=== PATIENT | male | born 1965 | race Caucasian/White ===

== ENCOUNTER → 2016-11-03 | Outpatient (REF) ==
--- NOTE | 2016-11-03 09:29 | REP ---
RIGHT HIP, AP AND FROGLEG VIEWS: There are no comparison studies. There is a total hip arthroplasty with the components tightly applied and in satisfactory position and alignment in both projections. There is no evidence of prosthesis loosening. There is no fracture or dislocation. Mineralization is normal. There are calcifications along the lateral margin of the acetabular roof. This could be postsurgical change or ligamentous calcifications. Mineralization is normal. Study is otherwise unremarkable. Signed by Evans Zamora MD 11/04/2016 05:19 P
== END ==
LOC: M SMT 08:05
PROVIDERS: ATTEND Internal Medicine
DX: Z02.71 Encounter for disability determination (principal)

== ENCOUNTER 2017-06-14 07:00 | Inpatient (IN) | payer OTHER ==
[~2017-06-14] VITALS: Ht 185.4 cm; Wt 90.7 kg
[~2017-06-14 07:00] MED LIST: BUPIVACAINE LIPOSOME/PF 1.3% 20 ML VIAL (13.3MG/ML)(EXPAREL) As Ordered ONE; CYMB60CA3 PO; FLOM5CAP PO; FLON1SPR; LR 1,000 ML IV ONE; NEXI40CA PO; TRANEXAMIC ACID 100 MG/ML 10ML VIAL As Ordered ONE; TRAZ25TA PO; ZYRT10CA PO; ceFAZolin 1GM INJ (J0690) As Ordered ONE
[2017-06-14] MEDS ORDERED: ceFAZolin 2 GM/D5W 50 ML IV BAG (J0690) As Ordered ONE (07:12)
[2017-06-14] MEDS ORDERED: VIAG100T (07:26)
[2017-06-14] MEDS ORDERED: ADVA230A (07:26)
[2017-06-14] MEDS ORDERED: MONT10TA2 (07:26)
[2017-06-14] MEDS ORDERED: fentaNYL 100 MCG/2 ML INJECTION (J3010) As Ordered ONE ×2 (07:58→08:48)
[2017-06-14] MEDS ORDERED: MIDAZOLAM INJ 2 MG/2 ML VIAL (J2250) As Ordered ONE ×3 (07:58→10:31)
[2017-06-14] MEDS ORDERED: fentaNYL 100 MCG/2 ML INJECTION (J3010) IV ONE (08:45)
[2017-06-14] MEDS ORDERED: MIDAZOLAM INJ 2 MG/2 ML VIAL (J2250) IV ONE (08:45)
[2017-06-14] MEDS ORDERED: dexameTHASONE 4 MG/ML 1ML VIAL (J1100) As Ordered ONE (08:48)
[2017-06-14] MEDS ORDERED: LIDOCAINE 2% INJ 100 MG/5 ML SDV (FOR ANES.) As Ordered ONE (08:48)
[2017-06-14] MEDS ORDERED: ONDANSETRON 4MG/2ML VIAL (J2405) As Ordered ONE (08:48)
[2017-06-14] MEDS ORDERED: PROPOFOL 500 MG/50 ML VIAL As Ordered ONE (08:48)
[2017-06-14] MEDS ORDERED: ePHEDrine SULFATE 25 MG/5 ML(5MG/ML) SYRINGE As Ordered ONE (09:13)
[2017-06-14] MEDS ORDERED: PROPOFOL 200 MG/20 ML VIAL As Ordered ONE ×3 (09:56→11:15)
[2017-06-14] MEDS ORDERED: EPINEPHrine INJ 1 MG/ML 1ML AMP ONE (10:39)
[2017-06-14] MEDS ORDERED: ROPIvacaine 0.5% 30 ML INJECTION (J2795) ONE (10:39)
[2017-06-14] MEDS ORDERED: dexameTHASONE 10 MG/1 ML VIAL PRES.FREE (J1100) ONE (10:39)
[2017-06-14] MEDS ORDERED: LR 1,000 ML IV SCH (12:00)
[2017-06-14] MEDS ORDERED: fentaNYL 100 MCG/2 ML INJECTION (J3010) IV PRN (12:00)
[2017-06-14] MEDS ORDERED: ONDANSETRON 4MG/2ML VIAL (J2405) IV PRN ×2 (12:00→12:45)
[2017-06-14 12:30] VITALS: BP 118/68
--- NOTE | 2017-06-14 12:43 | RO ---
DATE OF PROCEDURE: 06/14/2017 PREPROCEDURE DIAGNOSIS: Left knee osteoarthritis. POSTPROCEDURE DIAGNOSIS: Left knee osteoarthritis. PROCEDURE: Left total knee arthroplasty. SURGEON: Dr. Tj Ch. PSYCHIATRIST: NIGEL Quick ANESTHESIA: Spinal, adductor canal block, local IMPLANTS: DePuy Sigma PFC size 5 cruciate retaining femur, size 5 Fixed-Bearing tibia, 12.5 mm cruciate retaining polyethylene and 38 mm patellar polyethylene. ANTIBIOTICS: 2 grams Ancef given within 1 hour of incision. TOTAL TOURNIQUET TIME: 112 minutes at 250 mmHg, left thigh. PREOP MEDICATIONS: 1 gram tranexamic acid (TXA) given within 1 hour of incision. MATERIALS SENT TO LAB: None. COMPLICATIONS: None. INDICATION FOR PROCEDURE: Dick Carvalho is a 51 y/o male with a long standing history of left knee pain secondary to left knee osteoarthritis. He failed appropriate non surgical therapy to include activity modification, medications, physical therapy, injections, and has maintained a healthy body weight. I discussed with him the risks, benefits, indications, and alternatives of operative versus non operative treatment and he elected to proceed with left total knee arthroplasty. Informed consent was obtained. INTRAOPERATIVE FINDINGS: patient had severe tricompartmental osteoarthritis with mild valgus deformity. Well balanced and full ROM after implants placed. DESCRIPTION OF PROCEDURE: The patient was positively identified in the preop holding area where the surgical site was marked. He was given adductor canal nerve block with the anesthesia service for postop pain control. He was then brought to the operating room where he was given single-shot spinal anesthesia for intraoperative pain control. He was then prepped and draped in the usual sterile fashion. Final time out was performed. I made a 15 cm longitudinal incision centered over the patella extending distally to just medial to the tibial tubercle. I dissected through skin and subcutaneous tissue. I identified the quadriceps tendon, medial retinaculum and vastus medial oblique (VMO). I raised a medial flap to expose the medial retinaculum. I then performed a medial parapatellar arthrotomy in order to access the knee joint. I then performed a medial release off the proximal tibia using Bovie electrocautery and a curved osteotome. I then resected approximately half of the infrapatellar fat pad to aid with visualization laterally. The knee was then flexed and the patella everted to aid with creating the distal femur cut. I then used the rongeur to establish a starting point for the intramedullary femoral drill. The intramedullary femoral drill was placed and the 5 degree valgus, 10 mm cut intramedullary cutting guide was placed and pinned in place. The distal femur cut was made. At this point, the suprapatellar fat pad and synovium were resected in order to adequately size the femur for chamfer cuts. Osteophytes were removed from the femur. The posterior referencing cutting guide was placed on the posterior condyles of the femur were noted to be in line with the epicondylar axis and perpendicular to whitesides line. The femoral component was sized to a size 5. The 4-in-1 cutting block for a size 5 was placed onto the femur and the chamfer cuts were made. There was no evidence of notching. At this point, the knee was then brought back into flexion. The medial and lateral menisci were removed. The patient was noted to have previous injury to the anterior cruciate ligament (ACL). The residual ACL was debrided and the posterior cruciate ligament (PCL) was recessed. A PCL retractor was placed to advanced the tibia anteriorly. I then placed the extramedullary tibial cutting guide onto the leg and affixed it in placed after setting the varus/valgus alignment and posterior slope. It was measured to resect approximately 4 mm from the lateral side which was the affected side since the patient had the mild valgus deformity. After the tibial cutting block was pinned in place, the tibial resection was made noting adequate perpendicular cut to the long axis of the tibia. Once the chamfer cuts and proximal tibial cut were completed, I then removed the osteophytes from the posterior portion of the femoral condyles and checked flexion and extension gaps and were noted to be well-balanced in both flexion/extension with a 12.5 mm spacer block. The alignment appeared adequate. I then placed the tibial trial and sized the tibia to a size 5. I marked the center of the tibial component with the junction of the medial middle third of the tibial tubercle. This was marked for drilling of the elevator pilot holes for the tibial component. I then turned attention to the patellar resection where the [place] ira patella was measured to approximately 25-26 mm. I resected 10 mm of patella. The residual patella measured 15 mm in thickness. I then sized to a 38 mm component which corresponded to 9.5 mm of patellar thickness. This was in order to avoid over stuffing the patellar component. After the elevator pilot holes for the patellar component were drilled, femoral and tibial and patellar trials were then placed. I brought the knee through a range of motion and noted excellent patellar tracking using no thumbs technique. After this was completed, all residual osteophytes were removed from the patella. There was noted to be slight imbalance and extension with some tightness laterally. There was a small synovial fold which was cut, which released this lateral tightness and he was found to be well balanced in both flexion and extension. At this point the lug holes for the femoral component and the drill for the tibial keel were placed. I then thoroughly irrigated the knee with normal saline to remove any bony debris and blood from the cancellous bone. The hole for the intramedullary femoral guide was filled with a bone plug from the chamfer cuts. Then after mixing cement, the final components were implanted and the knee was then noted to be well balanced with full range of motion after implantation of components with excellent patellar tracking. At this point, an additional 2 grams of topical TXA was placed into the wounds and the tourniquet was let down. A total of 112 minutes. Hemostasis was achieved using Bovie electrocautery and then thoroughly irrigated the wound again closing the layers with a few interrupted 0 Vicryl sutures to approximate the retinacular layer. The retinacular layer was then closed with the running barbed suture followed by #2-0 Vicryl for subcutaneous layer and a running #4-0 Monocryl and a Prineo Dermabond dressing for the skin. Sterile dressings were applied. This ended the procedure. I was present and scrubbed in for all critical portions of the case. POSTOPERATIVE PLAN: The patient will be weightbearing as tolerated and will be admitted to the hospital floor. He will undergo physical therapy consultation for ambulation with a postoperative radiograph in the postanesthesia care unit (PACU). MICHAELA
[2017-06-14] MEDS ORDERED: PERCOCET 5MG/325MG TAB PO PRN (12:45)
[2017-06-14] MEDS ORDERED: ACETAMINOPHEN TAB 650MG DOSE (2X325MG) PO PRN (12:45)
[2017-06-14 13:00] VITALS: BP 111/63
--- NOTE | 2017-06-14 13:37 | REP ---
AP LATERAL LEFT KNEE, TWO VIEWS: HISTORY: Knee replacement. The patient is status post left total knee replacement. There is no acute fracture or dislocation. A small amount of subcutaneous air is present in the overlying soft tissue. IMPRESSION: The patient is status post left total knee replacement. There is anatomic alignment. Signed by Dick Pham MD 06/14/2017 01:42 P
[2017-06-14 14:00] VITALS: BP 127/66
[2017-06-14] MEDS: KETOROLAC 30 MG/ML VIAL (J1885) IV SCH ×2 (14:05→22:38)
[2017-06-14 17:00] VITALS: BP 119/69
[2017-06-14] MEDS: PERCOCET 5MG/325MG TAB PO PRN (21:25)
[2017-06-14 22:00] VITALS: BP 123/65
[2017-06-15 02:00] VITALS: BP 116/62
[2017-06-15 06:00] VITALS: BP 130/58
[2017-06-15] MEDS: KETOROLAC 30 MG/ML VIAL (J1885) IV SCH ×3 (06:11→22:23)
--- NOTE | 2017-06-15 06:33 | IPNPDOC ---
Date Seen The patient was seen on 06/15/17. Progress Note SUBJECTIVE: Patient is a 51 y/o male POD1 s/p L Total knee arthroplasty. No acute overnight events. No complaints. Pain well controlled. OBJECTIVE PHYSICAL EXAMINATION: VITAL SIGNS: Please see below. GENERAL: Resting comfortably in bed, NAD CARDIOVASCULAR: 2+ DP/PT pulses LLE, BCR all digits. RESPIRATORY: non labored breathing. EXTREMITIES: L knee dressing in place, c/d/i. Knee ROM 0-90. Able to perform SLR with minimal extensor lag NEUROLOGICAL: sensation/motor intact in all LLE distributions LABORATORY DATA: Please see below. MICROBIOLOGY: Please see below. IMAGING: Post op radiographs in PACU demonstrate well fixed TKA components DVT prophylaxis ordered?: Lovenox ASSESSMENT: This is a 51-year-old male POD1 s/p L TKA doing extremely well PLAN: 1. WBAT LLE 2. PT today for ambulation 3. Lovenox for DVT prophylaxis 4. If clears PT and pain controlled on PO meds, likely d/c home tomorrow VS, I&O, 24H, [place] Vital Signs/I&O Vital Signs Date Time Temp Pulse Resp B/P (MAP) Pulse Ox O2 Delivery O2 Flow Rate FiO2 06/15/17 02:00 98.1 53 18 116/62 (80) 96 Room Air 06/14/17 08:25 3 I&O- Last 24 Hours up to 6 AM 06/15/17 06:00 Intake Total 3135 ml Output Total 1800 ml Balance 1335 ml MELANY MORENO MD Jun 15, 2017 06:33
[2017-06-15 06:59] LABS: MEAN CORPUSCULAR HEMOGLOBIN 31.5 pg (27.0-33.0); MEAN CORPUSCULAR HGB CONC 34.3 g/dl (32.0-36.5); MEAN CORPUSCULAR VOLUME 91.8 fl (80.0-96.0); RED CELL DISTRIBUTION WIDTH 12.1 % (11.5-14.5); WHITE BLOOD COUNT 12.5 K/mm3 (4.0-10.0)
[2017-06-15 07:08] LABS: INR 0.97
[2017-06-15] MEDS ORDERED: ENOXAPARIN 40 MG/0.4 ML SYRINGE (J1650) SC ONE (09:00)
[2017-06-15] MEDS: DOCUSATE SODIUM 100 MG CAP PO SCH (09:38)
[2017-06-15] MEDS: PERCOCET 5MG/325MG TAB PO PRN (09:41)
[2017-06-15 14:00] VITALS: BP 134/70
[2017-06-15 22:00] VITALS: BP 117/74
[2017-06-16 06:00] VITALS: BP 112/70
[2017-06-16 07:39] LABS: INR 0.99
[2017-06-16] MEDS ORDERED: CelecoXIB (CeleBREX) 100 MG CAP PO SCH (09:00)
[2017-06-16] MEDS ORDERED: ENOXAPARIN 40 MG/0.4 ML SYRINGE (J1650) SC SCH (09:00)
[2017-06-16] MEDS: DOCUSATE SODIUM 100 MG CAP PO SCH (09:08)
--- NOTE | 2017-06-16 10:24 | IPNPDOC ---
Date Seen The patient was seen on 06/16/17. Progress Note SUBJECTIVE: Patient is a 51 y/o male POD2 s/p L Total knee arthroplasty. No acute overnight events. No complaints. Pain well controlled. OBJECTIVE PHYSICAL EXAMINATION: VITAL SIGNS: Please see below. GENERAL: Resting comfortably in bed, NAD CARDIOVASCULAR: 2+ DP/PT pulses LLE, BCR all digits. RESPIRATORY: non labored breathing. EXTREMITIES: L knee dressing removed, wound c/d/i. Knee ROM 0-80. Able to perform SLR with minimal extensor lag NEUROLOGICAL: sensation/motor intact in all LLE distributions LABORATORY DATA: Please see below. MICROBIOLOGY: Please see below. DVT prophylaxis ordered?: Lovenox ASSESSMENT: This is a 51-year-old male POD2 s/p L TKA doing extremely well PLAN: 1. WBAT LLE 2. PT today for ambulation 3. Lovenox for DVT prophylaxis 4. Discharge to home today. d/c instructions given. Patient has been educated on self administration of lovenox. All patient questions answered. VS, I&O, 24H, [place] Vital Signs/I&O Vital Signs Date Time Temp Pulse Resp B/P (MAP) Pulse Ox O2 Delivery O2 Flow Rate FiO2 06/16/17 06:49 16 06/16/17 06:19 Room Air 06/16/17 06:00 98.9 65 112/70 (84) 98 06/14/17 08:25 3 I&O- Last 24 Hours up to 6 AM 06/16/17 06:00 Intake Total 170 ml Output Total 0 ml Balance 170 ml Laboratory Data 24H LABS Laboratory Tests 2 06/16/17 06:48: Prothrombin Time 13.2, Prothromb Time International Ratio 0.99 MELANY MORENO MD Jun 16, 2017 10:24
--- NOTE | 2017-06-18 13:12 | DSES ---
DATE OF ADMISSION: 06/14/2017 DATE OF DISCHARGE: 06/16/2017 ADMISSION DIAGNOSIS: Left knee osteoarthritis. DISCHARGE DIAGNOSIS: Left knee osteoarthritis. PROCEDURE PERFORMED: Left total knee arthroplasty. DATE OF SURGERY: 06/14/2017 HOSPITAL COURSE: The patient was admitted on the date of surgery and underwent uneventful procedure. He was admitted to the hospital for postoperative pain control and physical therapy. The patient had an uneventful postoperative course. On postoperative day two, the patient had cleared physical therapy. His pain was controlled with oral pain medication. He was given patient education on home administration of Lovenox and had no postoperative immediate complications. He was discharged to home with discharge prescriptions already given preoperatively. The patient will be on Lovenox for two weeks for deep vein thrombosis (DVT) prophylaxis, followed by four weeks of aspirin. His postoperative followup appointment has been arranged for 06/27/2017 at the [facility]. The patient expressed understanding and agreed with the plan and all questions were answered. At the time of discharge, he was ambulating independently, voiding spontaneously, and tolerating a regular diet. MICHAELA
[2017-06-30] MEDS ORDERED: CELE100C PO (15:18)
[2017-06-30] MEDS ORDERED: ASPI325T24 PO (15:18)
== END 2017-06-16 13:25 | disposition home or self-care (01) | DRG 470 ==
LOC: M OR 07:00 → M MS5PR 12:30
PROVIDERS: ADMIT Orthopaedic Surgery; ATTEND Orthopaedic Surgery
PROC: 0SRD0J9 Replacement of Left Knee Joint with Synthetic Substitute, Cemented, Open Approach (ICD-10-PCS; principal; 2017-06-14 08:30)
DX: M17.12 Unilateral primary osteoarthritis, left knee (principal); F32.9 Major depressive disorder, single episode, unspecified; F41.9 Anxiety disorder, unspecified; J45.909 Unspecified asthma, uncomplicated; K21.9 Gastro-esophageal reflux disease without esophagitis; N40.0 Benign prostatic hyperplasia without lower urinary tract symptoms; Z79.82 Long term (current) use of aspirin; Z79.899 Other long term (current) drug therapy; Z96.651 Presence of right artificial knee joint

== ENCOUNTER 2017-07-07 10:26 | Outpatient (CLI) | payer OTHER ==
[~2017-07-07] VITALS: Ht 190.5 cm; Wt 90.7 kg
[~2017-07-07 10:26] MED LIST changes: +ADVA230A; +ASPI325T24 PO; -BUPIVACAINE LIPOSOME/PF 1.3% 20 ML VIAL (13.3MG/ML)(EXPAREL) As Ordered ONE; +CELE100C PO; -LR 1,000 ML IV ONE; +MONT10TA2; -TRANEXAMIC ACID 100 MG/ML 10ML VIAL As Ordered ONE; +VIAG100T; -ceFAZolin 1GM INJ (J0690) As Ordered ONE
[2017-07-07] MEDS ORDERED: NS 1,000 ML IV ONE (11:00)
[2017-07-07] MEDS ORDERED: LIDOCAINE 2% INJ 100 MG/5 ML SDV (FOR ANES.) As Ordered ONE (12:27)
[2017-07-07] MEDS ORDERED: PROPOFOL 200 MG/20 ML VIAL As Ordered ONE ×2 (12:27→12:28)
[2017-07-07 12:32] VITALS: BP 103/58
--- NOTE | 2017-07-07 12:34 | ROOR ---
Patient Name: Dick Carvalho Procedure Date: 07/07/2017 12:22 PM Date of : 1965 Age: 52 Room: [facility] Gender: Male Note Status: Finalized Procedure: Colonoscopy Indications: Screening for colorectal malignant neoplasm Providers: Peter TOMAS MD Referring MD: RUCHI HOPPER MD Requesting Provider: Medicines: Monitored Anesthesia Care Complications: No immediate complications. Procedure: Pre-Anesthesia Assessment: - The heart rate, respiratory rate, oxygen saturations, blood pressure, adequacy of pulmonary ventilation, and response to care were monitored throughout the procedure. The Colonoscope was introduced through the anus with the intention of advancing to the cecum. The scope was advanced to the sigmoid colon before the procedure was aborted. Medications were given. The colonoscopy was performed without difficulty. The patient tolerated the procedure well. The quality of the bowel preparation was poor. Findings: The perianal and digital rectal examinations were normal. (Colon Prep was POOR, Inadequate Visualisation) Impression: - Procedure was aborted due to: Preparation of the colon was poor. - Inadequate Visualisation - No specimens collected. Recommendation: - Repeat colonoscopy at the next available appointment because the bowel preparation was poor. - My office will call you to reschedule the procedure. Peter Tomas MD Peter TOMAS MD 07/07/2017 12:33:59 PM This report has been signed electronically. Number of Addenda: 0 Note Initiated On: 07/07/2017 12:22 PM Estimated Blood Loss: Estimated blood loss: none.
== END 2017-07-07 13:00 | disposition home or self-care (01) ==
LOC: M OPP 10:26
PROVIDERS: ATTEND Internal Medicine Gastroenterology
DX: Z12.11 Encounter for screening for malignant neoplasm of colon (principal); M19.90 Unspecified osteoarthritis, unspecified site; M54.9 Dorsalgia, unspecified; M25.60 Stiffness of unspecified joint, not elsewhere classified; G47.00 Insomnia, unspecified; F43.10 Post-traumatic stress disorder, unspecified; J45.909 Unspecified asthma, uncomplicated; N40.1 Benign prostatic hyperplasia with lower urinary tract symptoms; Z96.652 Presence of left artificial knee joint; Z96.641 Presence of right artificial hip joint; Z79.82 Long term (current) use of aspirin; Z79.899 Other long term (current) drug therapy

== ENCOUNTER → 2019-11-25 | Outpatient (CLI) | payer OTHER ==
[~2019-11-25] MED LIST changes: +ASPI-255 PO; -ASPI325T24 PO; +FLOM0.4C39 PO; -FLOM5CAP PO; -MONT10TA2; +MONT10TA4; +TRAZ1TAB11 PO; -TRAZ25TA PO
--- NOTE | 2019-11-25 10:12 | REP ---
Clinical: Trauma. Pain. Technique: AP, lateral, bilateral oblique views right wrist . Findings: There is a nondisplaced corner fracture involving the radial styloid extending to the radiocarpal joint space. Remainder examination appears normal. Impression: Nondisplaced corner fracture involving the RADIAL styloid. Electronically Signed by Joaquim Treadwell MD 11/25/2019 10:03 A
== END ==
LOC: M WUC 09:26
PROVIDERS: ATTEND Physician Assistant
DX: S52.514A Nondisplaced fracture of right radial styloid process, initial encounter for closed fracture (principal); X58.XXXA Exposure to other specified factors, initial encounter; Y92.9 Unspecified place or not applicable

== ENCOUNTER → 2021-06-25 | Outpatient (CLI) | payer OTHER ==
[~2021-06-25] MED LIST changes: +MONT10TA10; -MONT10TA4
--- NOTE | 2021-06-25 15:51 | REP ---
INDICATION: ACUTE MIDLINE LOW BACK PAIN, UNSPECIFIED WHETHER SCIATICA ND. COMPARISON: None. TECHNIQUE: Five views lumbosacral spine. FINDINGS: There is mild loss of height of the T12, L1 and L2 vertebral bodies, of indeterminate age. There is normal lumbar lordosis and alignment. There is a moderate degree of disc space narrowing at L5-S1 with subchondral sclerosis, with mild disc space narrowing at L4-5. There is sclerosis and spurring at the posterior facet joints of L4-5 and L5-S1. The posterior elements appear intact. Metallic prosthesis is noted of the right hip. IMPRESSION: Mild loss of height of the T12, L1 and L2 vertebral bodies of indeterminate age. Mild degenerative changes as above. <Electronically signed by Evans Fall > 06/25/21 [id number]
--- NOTE | 2021-06-25 15:55 | REP ---
INDICATION: NECK PAIN. COMPARISON: None. TECHNIQUE: Eight views cervical spine. FINDINGS: There is straightening of the normal cervical lordosis, with limited motion with flexion and extension. No compression fracture is seen and there is no malalignment. There is moderate disc space narrowing with subchondral sclerosis at the C6-7 disc space. The other disc spaces appear well preserved. There is no prevertebral soft tissue swelling. There is diffuse spurring and sclerosis at the posterior facet joints. Uncovertebral and facet spurring appears to cause at least a mild degree of bilateral foraminal narrowing at C6-7. There may be mild narrowing of the C3-4 and C5-6 neural foramen on the right. IMPRESSION: Degenerative changes as above. <Electronically signed by Evans Fall > 06/25/21 [id number]
== END ==
LOC: M ADAMS 15:19
PROVIDERS: ATTEND Family Medicine
DX: M51.34 Other intervertebral disc degeneration, thoracic region (principal); M51.36 Other intervertebral disc degeneration, lumbar region; M25.78 Osteophyte, vertebrae
CPT/HCPCS: 72050; 72100; G0463

== ENCOUNTER → 2022-03-09 | Outpatient (CLI) | payer OTHER ==
[~2022-03-09] MED LIST changes: -CYMB60CA3 PO; +CYMB60CA4 PO; -MONT10TA10; +MONT10TA97
== END ==
LOC: M RAD 15:28
PROVIDERS: ATTEND Physician Assistant
DX: N52.9 Male erectile dysfunction, unspecified (principal); N50.3 Cyst of epididymis

== ENCOUNTER → 2023-02-28 | Outpatient (REF) | payer OTHER ==
[2023-02-28 14:16] LABS: APPEARANCE, URINE CLEAR (CLEAR); BACTERIA, URINE AUTO NEGATIVE (NEGATIVE); BILIRUBIN, URINE AUTO NEGATIVE (NEGATIVE); BLOOD, URINE BLOOD 2+ (NEGATIVE); COLOR, URINE STRAW (YELLOW); GLUCOSE, URINE (UA) AUTO NEGATIVE (NEGATIVE); KETONE, URINE AUTO NEGATIVE (NEGATIVE); LEUKOCYTE ESTERASE, URINE AUTO NEGATIVE (NEGATIVE); NITRITE, URINE AUTO NEGATIVE (NEGATIVE); PROTEIN, URINE AUTO NEGATIVE (NEGATIVE); RBC, URINE AUTO 0 /HPF (0-3); SPECIFIC GRAVITY URINE AUTO 1.008 (1.002-1.035); SQUAMOUS EPITHELIAL CELL UR AU 0 /HPF (0-6); UROBILINOGEN, URINE AUTO 0.2 mg/dL (0.0-2.0); WBC, URINE AUTO 0 /HPF (0-3)
== END ==
LOC: M SMT 13:17
PROVIDERS: ATTEND Physician Assistant
DX: N40.1 Benign prostatic hyperplasia with lower urinary tract symptoms (principal)
CPT/HCPCS: 81001; G0463

== ENCOUNTER → 2023-09-27 | Outpatient (REF) | payer OTHER, BC ==
[2023-09-27 16:47] LABS: ALBUMIN 3.8 G/DL (3.2-5.2); ALKALINE PHOSPHATASE 65 U/L (46-116); ALT/SGPT 13 U/L (7.0-40); AST/SGOT 17 U/L (<34); BILIRUBIN,TOTAL 0.7 MG/DL (0.3-1.2); BLOOD UREA NITROGEN 14 MG/DL (9-23); CALCIUM LEVEL 9.1 MG/DL (8.5-10.1); CARBON DIOXIDE LEVEL 31 MMOL/L (20-31); CHLORIDE LEVEL 102 MMOL/L (98-107); CREATININE FOR GFR 0.94 MG/DL (0.70-1.30); GLOMERULAR FILTRATION RATE > 60.0 (>56); GLUCOSE, FASTING 89 MG/DL (60-100); POTASSIUM SERUM 4.1 MMOL/L (3.5-5.1); SODIUM LEVEL 137 MMOL/L (136-145); TOTAL PROTEIN 7.1 G/DL (5.7-8.2)
[2023-09-27 16:50] LABS: FREE T4 1.01 NG/DL (0.89-1.76); THYROID STIMULATING HORMONE 1.145 uIU/ML (0.55-4.78)
[2023-09-27 16:52] LABS: VITAMIN B12 LEVEL 265 PG/ML (211-911)
== END ==
LOC: M SFHCADAM 14:30
PROVIDERS: ATTEND Family Medicine
DX: R25.1 Tremor, unspecified (principal); R41.3 Other amnesia; Z82.0 Family history of epilepsy and other diseases of the nervous system

== ENCOUNTER → 2023-10-23 | Outpatient (CLI) | payer BC, OTHER | LOC: M ADAMS 10:15 | PROVIDERS: ATTEND Family Medicine | DX: M54.50 Low back pain, unspecified (principal); M47.816 Spondylosis without myelopathy or radiculopathy, lumbar region; G89.29 Other chronic pain | CPT/HCPCS: 72100; G0463 ==

== ENCOUNTER → 2023-11-10 | Outpatient (CLI) | payer BC, OTHER ==
[~2023-11-10] MED LIST changes: +PROHANCE 279.3MG/ML 15ML VIAL As Ordered ONE; +PROHANCE 279.3MG/ML 5ML VIAL As Ordered ONE
== END ==
LOC: M RAD 15:54
PROVIDERS: ATTEND Family Medicine
DX: R41.3 Other amnesia (principal); R25.1 Tremor, unspecified; Z82.0 Family history of epilepsy and other diseases of the nervous system
CPT/HCPCS: 70553; A9576

== ENCOUNTER → 2024-02-05 | Outpatient (REF) | payer BC, OTHER ==
[~2024-02-05] MED LIST changes: -PROHANCE 279.3MG/ML 15ML VIAL As Ordered ONE; -PROHANCE 279.3MG/ML 5ML VIAL As Ordered ONE
== END ==
LOC: M LABWUC 12:43
PROVIDERS: ATTEND Physician Assistant
DX: Z12.5 Encounter for screening for malignant neoplasm of prostate (principal)

== ENCOUNTER → 2024-03-08 | Outpatient (REF) | payer BC, OTHER ==
[2024-03-08 12:42] LABS: APPEARANCE, URINE CLEAR (CLEAR); BACTERIA, URINE AUTO NEGATIVE (NEGATIVE); BILIRUBIN, URINE AUTO NEGATIVE (NEGATIVE); BLOOD, URINE BLOOD 2+ (NEGATIVE); COLOR, URINE STRAW (YELLOW); GLUCOSE, URINE (UA) AUTO NEGATIVE (NEGATIVE); KETONE, URINE AUTO NEGATIVE (NEGATIVE); LEUKOCYTE ESTERASE, URINE AUTO NEGATIVE (NEGATIVE); NITRITE, URINE AUTO NEGATIVE (NEGATIVE); PROTEIN, URINE AUTO NEGATIVE (NEGATIVE); RBC, URINE AUTO 4 /HPF (0-3); SPECIFIC GRAVITY URINE AUTO 1.005 (1.002-1.035); SQUAMOUS EPITHELIAL CELL UR AU 0 /HPF (0-6); UROBILINOGEN, URINE AUTO 0.2 mg/dL (0.0-2.0); WBC, URINE AUTO 2 /HPF (0-3)
== END ==
LOC: M SMT 12:12
PROVIDERS: ATTEND Physician Assistant
DX: R31.21 Asymptomatic microscopic hematuria (principal)

== ENCOUNTER → 2024-05-09 | Outpatient (CLI) | payer BC, OTHER | LOC: M RAD 15:20 | PROVIDERS: ATTEND Pain Medicine Pain Medicine | DX: M54.59 Other low back pain (principal); R29.898 Other symptoms and signs involving the musculoskeletal system; M47.816 Spondylosis without myelopathy or radiculopathy, lumbar region; M48.061 Spinal stenosis, lumbar region without neurogenic claudication ==

== ENCOUNTER 2024-09-11 12:36 | Day surgery (SDC) | payer BC, OTHER ==
[~2024-09-11] VITALS: Ht 190.5 cm; Wt 96.4 kg
[~2024-09-11 12:36] MED LIST changes: +ALBU8.5H INH; +ALL10TAB PO; +MELO15TA28 PO; +MONT5TAB7 PO
[2024-09-11] MEDS ORDERED: propofoL 200 MG/20 ML VIAL As Ordered ONE (13:26)
[2024-09-11] MEDS ORDERED: LIDOCAINE 2% 100MG/5ML SDV (FOR ANES.) As Ordered ONE (13:26)
[2024-09-11 14:58] VITALS: BP 132/88; O2SAT 97
== END 2024-09-11 14:58 | disposition home or self-care (01) ==
LOC: M OPP 12:36
PROVIDERS: ATTEND Surgery
DX: Z12.11 Encounter for screening for malignant neoplasm of colon (principal); Z12.12 Encounter for screening for malignant neoplasm of rectum; K64.9 Unspecified hemorrhoids; J45.909 Unspecified asthma, uncomplicated; G47.30 Sleep apnea, unspecified; Z79.899 Other long term (current) drug therapy; N40.0 Benign prostatic hyperplasia without lower urinary tract symptoms; F43.20 Adjustment disorder, unspecified; G47.00 Insomnia, unspecified

== ENCOUNTER → 2024-10-04 | Outpatient (CLI) | payer BC, OTHER ==
[2024-10-04 17:00] LABS: BASO # 0.1 10^3/uL (0.0-0.2); EOS # 0.1 10^3/uL (0.0-0.5); EOS % 1.2 % (0.0-3.0); HEMATOCRIT 42.8 % (42.0-52.0); HEMOGLOBIN 14.2 g/dl (13.5-17.5); LYMPH # 1.4 10^3/uL (1.5-5.0); LYMPH % 28.6 % (24.0-44.0); MEAN CORPUSCULAR HEMOGLOBIN 30.7 pg (27.0-33.0); MEAN CORPUSCULAR HGB CONC 33.2 g/dl (32.0-36.5); MEAN CORPUSCULAR VOLUME 92.6 fl (80.0-96.0); MONO # 0.4 10^3/uL (0.0-0.8); MONO % 7.9 % (2.0-8.0); NEUTROPHILS % 61.1 % (36.0-66.0); PLATELET COUNT, AUTOMATED 211 10^3/uL (150-450); RED BLOOD COUNT 4.62 10^6/uL (4.30-6.10)
[2024-10-04 17:17] LABS: ALBUMIN 3.6 G/DL (3.2-5.2); BILIRUBIN,DIRECT 0.2 MG/DL (<0.4); BILIRUBIN,TOTAL 0.7 MG/DL (0.3-1.2); PERCENT SATURATION 31.7 % (19.7-50.0); TOTAL PROTEIN 7.3 G/DL (5.7-8.2)
[2024-10-04 17:19] LABS: FERRITIN 106.8 NG/ML (10.5-307.3)
== END ==
LOC: M WUC 12:07
PROVIDERS: ATTEND Orthopaedic Surgery Adult Reconstructive Orthopaedic Surgery
DX: Z01.818 Encounter for other preprocedural examination (principal); D68.9 Coagulation defect, unspecified; M16.12 Unilateral primary osteoarthritis, left hip; M25.552 Pain in left hip; Z51.81 Encounter for therapeutic drug level monitoring

== ENCOUNTER → 2024-10-22 | Outpatient (CLI) | payer BC, OTHER ==
[2024-10-22 19:21] LABS: BLOOD UREA NITROGEN 15 MG/DL (9-23); CREATININE FOR GFR 1.01 MG/DL (0.70-1.30); GLOMERULAR FILTRATION RATE > 60.0 (>56)
== END ==
LOC: M WUC 13:01
PROVIDERS: ATTEND Physician Assistant
DX: Z51.81 Encounter for therapeutic drug level monitoring (principal); Z79.1 Long term (current) use of non-steroidal anti-inflammatories (NSAID)

== ENCOUNTER → 2024-11-04 | Outpatient (CLI) | payer BC, OTHER ==
[2024-11-04 17:55] LABS: BASO % 0.7 % (0.0-1.0); EOS # 0.1 10^3/uL (0.0-0.5); EOS % 1.2 % (0.0-3.0); HEMATOCRIT 44.4 % (42.0-52.0); HEMOGLOBIN 14.8 g/dl (13.5-17.5); LYMPH # 1.5 10^3/uL (1.5-5.0); LYMPH % 24.8 % (24.0-44.0); MEAN CORPUSCULAR HEMOGLOBIN 30.8 pg (27.0-33.0); MEAN CORPUSCULAR HGB CONC 33.3 g/dl (32.0-36.5); MEAN CORPUSCULAR VOLUME 92.3 fl (80.0-96.0); MONO # 0.4 10^3/uL (0.0-0.8); MONO % 7.3 % (2.0-8.0); NEUTROPHILS % 65.8 % (36.0-66.0); PLATELET COUNT, AUTOMATED 207 10^3/uL (150-450); RED BLOOD COUNT 4.81 10^6/uL (4.30-6.10)
[2024-11-04 17:56] LABS: ALBUMIN 3.8 G/DL (3.2-5.2); ALKALINE PHOSPHATASE 74 U/L (40-129); ALT/SGPT 16 U/L (7.0-40); AST/SGOT 17 U/L (<34); BILIRUBIN,TOTAL 0.7 MG/DL (0.3-1.2); BLOOD UREA NITROGEN 15 MG/DL (9-23); CALCIUM LEVEL 9.2 MG/DL (8.5-10.1); CARBON DIOXIDE LEVEL 29 MMOL/L (20-31); CHLORIDE LEVEL 104 MMOL/L (98-107); CREATININE FOR GFR 0.97 MG/DL (0.70-1.30); FREE T4 1.06 NG/DL (0.89-1.76); GLOMERULAR FILTRATION RATE > 60.0 (>56); GLUCOSE, FASTING 85 MG/DL (60-100); POTASSIUM SERUM 4.5 MMOL/L (3.5-5.1); SODIUM LEVEL 140 MMOL/L (136-145); THYROID STIMULATING HORMONE 1.202 uIU/ML (0.55-4.78); TOTAL PROTEIN 7.4 G/DL (5.7-8.2)
== END ==
LOC: M LABDRWAD 13:48
PROVIDERS: ATTEND Family Medicine
DX: Z01.818 Encounter for other preprocedural examination (principal)

== ENCOUNTER → 2025-07-01 | Outpatient (CLI) | payer BC, OTHER ==
[~2025-07-01] MED LIST changes: -FLOM0.4C39 PO; +TAMS-18 PO
== END ==
LOC: M WUC 14:23
PROVIDERS: ATTEND Physician Assistant
DX: Z12.5 Encounter for screening for malignant neoplasm of prostate (principal)
CPT/HCPCS: 36415; G0103

== ENCOUNTER → 2025-07-02 | Outpatient (REF) | payer BC, OTHER | LOC: M SFHCADAM 17:22 | PROVIDERS: ATTEND Family Medicine | DX: Z53.9 Procedure and treatment not carried out, unspecified reason (principal); Z00.00 Encounter for general adult medical examination without abnormal findings ==

== ENCOUNTER → 2025-07-03 | Outpatient (CLI) | payer BC, OTHER ==
[2025-07-03 14:07] LABS: ALT/SGPT 16 U/L (7.0-40); AST/SGOT 19 U/L (<34); CALCIUM LEVEL 9.4 MG/DL (8.5-10.1); CARBON DIOXIDE LEVEL 30 MMOL/L (20-31); CHLORIDE LEVEL 102 MMOL/L (98-107); CHOLESTEROL LEVEL 184 MG/DL (<200); CHOLESTEROL RISK RATIO 3.26 (<5); CREATININE FOR GFR 0.94 MG/DL (0.70-1.30); GLOMERULAR FILTRATION RATE > 90.0 (>56); LDL CHOLESTEROL 111.9 MG/DL (<100); NON-HDL-C 127.7 MG/DL; POTASSIUM SERUM 4.5 MMOL/L (3.5-5.1); SODIUM LEVEL 139 MMOL/L (136-145); TRIGLYCERIDES LEVEL 79 MG/DL (<150)
[2025-07-03 14:08] LABS: BASO # 0.1 10^3/uL (0.0-0.2); BASO % 1.0 % (0.0-1.0); EOS # 0.1 10^3/uL (0.0-0.5); EOS % 1.2 % (0.0-3.0); LYMPH # 1.4 10^3/uL (1.5-5.0); LYMPH % 24.3 % (24.0-44.0); MONO # 0.5 10^3/uL (0.0-0.8); MONO % 8.9 % (2.0-8.0); NEUTROPHILS # 3.8 10^3/uL (1.5-8.5); NEUTROPHILS % 64.3 % (36.0-66.0); PLATELET COUNT, AUTOMATED 201 10^3/uL (150-450)
== END ==
LOC: M WUC 08:08
PROVIDERS: ATTEND Family Medicine
DX: Z00.00 Encounter for general adult medical examination without abnormal findings (principal)